=== PATIENT | male | born 1965 | race African-American/Black ===

== ENCOUNTER 2022-03-16 07:35 | Emergency (ER) | payer MEDICARE, OTHER ==
[~2022-03-16] VITALS: Ht 182.9 cm; Wt 81.6 kg
[2022-03-16 08:32] LABS: HEMOGLOBIN 14.4 gm/dl (14.0-17.5); RED BLOOD COUNT 4.83 M/UL (4.20-5.50)
[2022-03-16 08:50] LABS: BUN/CREATININE RATIO 15 (0-10)
== END 2022-03-16 16:40 | disposition short-term general hospital (02) ==
LOC: ER1 07:35
PROVIDERS: Nurse Practitioner
DX: R45.851 Suicidal ideations (principal); E78.5 Hyperlipidemia, unspecified; F17.210 Nicotine dependence, cigarettes, uncomplicated; Z20.822 Contact with and (suspected) exposure to COVID-19; Z91.52 Personal history of nonsuicidal self-harm; Z79.899 Other long term (current) drug therapy
CPT/HCPCS: 0240U; 80053; 80307; 81001; 83735; 85025; 93005; 96374; 96375; 99285; G0480; J2405; J3411; J3475; J7030